=== PATIENT | female | born 1975 | race African-American/Black ===

== ENCOUNTER 2018-02-15 07:12 | Day surgery (SDC) | payer BC ==
[~2018-02-15 07:12] MED LIST: Buffered Lidocaine 0.9% SYRIN* 5 ML/SYR SYRINGE INTRADERM ONE; Famotidine TAB* 20 MG PO ONE; ceFOXitin(*) 2 GM in NS 0.9% 50 ML* 50 ML IVPB ONE
[2018-02-15] MEDS ORDERED: Famotidine TAB* 20 MG ONE (07:25)
[2018-02-15] MEDS ORDERED: Buffered Lidocaine 0.9% SYRIN* 5 ML/SYR SYRINGE ONE (07:25)
[2018-02-15 08:03] LABS: ABS Basophils 0 10^3/ul (0-0.2); ABS Eosinophils 0.1 10^3/ul (0-0.6); ABS Lymphocytes 1.3 10^3/ul (1.0-4.8); ABS Monocytes 0.6 10^3/ul (0-0.8); ABS Nucleated RBC 0 10^3/ul; Eosinophil % 2.7 % (0-6); Hematocrit 36 % (35-47); Lymphocyte % 25.6 % (25-47); Mean Corpuscular HGB Conc 33 g/dl (31-36); Mean Corpuscular Hemoglobin 26 pg (27-31); Mean Corpuscular Volume 77 fL (80-97); Mean Platelet Volume 7.3 um3 (7.4-10.4); Nucleated Red Blood Cells % 0.2; Platelet Count 416 10^3/ul (150-450); Red Blood Count 4.62 10^6/ul (4.0-5.4); Red Cell Distribution Width 15 % (10.5-15); White Blood Count 5.2 10^3/ul (3.5-10.8)
[2018-02-15] MEDS ORDERED: fentaNYL* 50 MCG/ML 2 ML VIAL (100 MCG VIAL) ONE (08:15)
[2018-02-15] MEDS ORDERED: Midazolam* 1 MG/ML 5 ML VIAL (5 MG) ONE (08:15)
[2018-02-15] MEDS ORDERED: DiMENhydriNATE IV* 50 MG/ML VIAL IV PUSH PRN (09:20)
[2018-02-15] MEDS ORDERED: Naloxone* 0.4 MG/ML 1 ML VIAL IV PRN (09:20)
[2018-02-15] MEDS ORDERED: Acetaminophen TAB* 325 MG PO PRN (09:20)
[2018-02-15] MEDS ORDERED: HYDROmorphone INJ* 2 MG/ML CARPUJECT SYRINGE ONE (09:33)
[2018-02-15] MEDS: HYDROmorphone INJ* 1 MG/ML CARPUJECT SYRINGE IV PRN ×5 (09:34→09:58)
[2018-02-15] MEDS ORDERED: oxyCODONE/Acetamin 5/325 MG* TAB ONE (10:00)
[2018-02-15] MEDS ORDERED: Lidocaine 2% PF * 5 ML VIAL ONE (10:01)
[2018-02-15] MEDS ORDERED: DiMENhydriNATE IV* 50 MG/ML VIAL ONE (10:01)
[2018-02-15] MEDS ORDERED: Ketorolac INJ* 30 MG/ML 1 ML VIAL ONE (10:01)
[2018-02-15] MEDS ORDERED: Propofol* 10 MG/ML 20 ML BTL IV PUSH ONE (10:01)
[2018-02-15] MEDS ORDERED: Dexamethasone IV* 4 MG/ML 1 ML (4 MG) ONE (10:01)
[2018-02-15 10:40] VITALS: BP 137/98
--- NOTE | 2018-02-16 03:01 | OP ---
OPERATIVE REPORT: DATE OF OPERATION: 02/15/18 DATE OF : 71 SURGEON: Mohini Lincoln MD ANESTHESIA: General endotracheal. PRE-OP DIAGNOSIS: Menorrhagia. POST-OP DIAGNOSIS: Menorrhagia. OPERATIVE PROCEDURE: Dilation and curettage, hysteroscopy, and NovaSure ablation. ESTIMATED BLOOD LOSS: Minimal. URINE OUTPUT: 50 cc of clear yellow urine. FLUIDS: 600 cc of crystalloid. FINDINGS: Revealed normal uterine cavity. Bilateral tubal ostia seen. No masses or excrescences wi thin the uterine cavity. Cervical length was 3 cm, cavity length 6.5, cavity width 4.2 cm, power 154 ohms, time cycle was 58 seconds. Postablation, excellent application of NovaSure ablation with comp lete endometrium with evidence of cautery effect. COMPLICATIONS: None apparent. DISPOSITION: Stable to recovery room. DESCRIPTION OF PROCEDURE: The patient was placed in dorsal lithotomy position. The perineum and vagi na were prepped and draped in a sterile standard fashion. The patient was identified for correct pro cedure, position and patient. After universal protocol was completed, self-cath was inserted for yen inage of clear yellow urine 50 cc, self-cath was then removed. Sterile speculum was inserted. Cervix was visualized and grasped on the anterior lip with a single-tooth tenaculum and cervical length was determined to be 3 cm based on using a #5 Hegar dilator. Hysteroscope was then inserted. Uterine ca vity was noted to have no tumors, masses or excrescences and both tubal ostia were seen. A sharp cur ettage was then performed and then a NovaSure ablative instrument was inserted with standard techniqu e. The cavity width was noted to be 4.2 cm. The uterine cavity length was 6.5 cm, the power applied was 154 ohms and the cycle was 58 seconds. After completion of the CO2 integrity of the uterine cav ity, the application and an ablative process was then carried out. NovaSure ablative device was then removed after completion of a cycle and the hysteroscope was then inserted confirming excellent appl ication of the ablation with good ablative effect noted throughout the uterine cavity with patency an d no effect of the endocervical canal. The single-tooth tenaculum was then removed. Sterile speculu m was then removed. The patient was returned to the dorsal lithotomy position and then taken to the recovery room in stable condition. All sponge, instrument, and blade counts were correct throughout the case. The patient tolerated the procedure well and is in recovery room in stable condition. [id number]/[facility] #: [id number]
== END 2018-02-15 10:51 | disposition home or self-care (01) ==
LOC: OR 07:12
PROVIDERS: ATTEND Obstetrics & Gynecology
DX: N92.0 Excessive and frequent menstruation with regular cycle (principal); N84.0 Polyp of corpus uteri; I10 Essential (primary) hypertension; J30.2 Other seasonal allergic rhinitis; F41.8 Other specified anxiety disorders; D64.9 Anemia, unspecified
CPT/HCPCS: 36415; 81025; 85025; 86850; 86900; 86901; 88305; A9270-GY; J0694; J1100; J1170; J1240; J1885; J2250; J2704; J3010